=== PATIENT | female | born 1985 | race Caucasian/White ===

== ENCOUNTER → 2018-09-07 | Outpatient (CLI) | payer BC, MEDICAID, OTHER ==
--- NOTE | 2018-09-07 16:41 | Diagnostic Imaging Report ---
INDICATION: patient, survey. TECHNIQUE: Multiple real-time grayscale images were obtained over the gravid uterus. COMPARISON: None FINDINGS: A single live intrauterine fetus is seen measuring at 20 weeks 3 days by composite measurements with sonographic EDC of 01/22/2019. The fetus is in cephalic presentation. Amniotic fluid is qualitatively normal. The gestational sac had a normal shape and appearance. Placenta is fundal with no evidence of previa. heart rate is 139 beats per minute. Cervical length was 6.8 cm. survey demonstrates normal-appearing kidneys, bladder, and stomach. Normal intracranial ventricles are noted. Four-chamber heart view appears normal. The three-vessel cord and cord insertion appeared unremarkable. The spine appeared normal. Maternal ovaries could not be seen but there was no free fluid in the adnexal regions. Biometrical measurements are as follows: Biparietal 4.79 cm, age 20 weeks 4 days. Head circumference 17.39 cm, age 20 weeks 0 days. Abdominal circumference 15.57 cm, age 20 weeks 6 days. Femur length 3.21 cm, age 20 weeks 0 days. Sonographic estimate age: 20 weeks 3 days. Sonographic estimated date of delivery: 01/22/2019. Estimated Weight: 349 gm (+/- 51 gm). LMP percentile: 41%. heart rate: 139 beats per minute. number: 1 of 1. IMPRESSION: Single live intrauterine fetus measuring 20 weeks 3 days in size with no detectable abnormality. Dictated by: Dictated on workstation # [id number]
== END ==
LOC: RAD 14:59
PROVIDERS: ATTEND Obstetrics & Gynecology
DX: Z36.89 Encounter for other specified antenatal screening (principal); Z3A.20 20 weeks gestation of pregnancy
CPT/HCPCS: 76805

== ENCOUNTER → 2018-10-30 | Outpatient (CLI) | payer OTHER | LOC: LAB 07:56 | PROVIDERS: ATTEND Obstetrics & Gynecology | DX: R73.02 Impaired glucose tolerance (oral) (principal) | CPT/HCPCS: 36415; 82951; 82952; 82962 ==

== ENCOUNTER 2018-12-29 06:16 | Outpatient (CLI) | payer OTHER ==
[~2018-12-29] VITALS: Ht 154.9 cm; Wt 74.8 kg
== END 2018-12-29 15:48 | disposition home or self-care (01) ==
LOC: PREOP 06:16
PROVIDERS: ATTEND Obstetrics & Gynecology
DX: Z01.818 Encounter for other preprocedural examination (principal)

== ENCOUNTER 2019-01-02 11:33 | Inpatient (IN) | payer OTHER ==
[~2019-01-02] VITALS: Ht 154.9 cm; Wt 76.2 kg
[2019-01-02] VITALS (9 sets, daily range): BP systolic 96–117; BP diastolic 62–77
--- NOTE | 2019-01-02 11:41 | NUR ---
NIKO VERONICA presented to unit via AMBULATION from HOME, accompanied by S/O, with c/o PREVIOUS C/S. NIKO VERONICA weighed, gowned, voided, and to bed. EFHM and TOCO applied, VS taken. NIKO VERONICA oriented to bed controls, call light, TV, heat, and A/C controls.
[2019-01-02] MEDS ORDERED: LACTATED RINGERS 1,000 ML IV SCH (12:27)
[2019-01-02] MEDS ORDERED: ceFAZolin INJECTION 1,000 MG in WATER (STERILE) FOR INJECTION 10 ML IV ONE (12:30)
[2019-01-02] MEDS ORDERED: FAMOTIDINE 20MG/2ML IV (PEPCID) IV ONE (12:30)
[2019-01-02] MEDS ORDERED: METOCLOPRAMIDE INJ 10 MG/2 ML (REGLAN) IV ONE (12:30)
[2019-01-02] MEDS ORDERED: ceFAZolin INJECTION 1,000 MG in WATER (STERILE) FOR INJECTION 10 ML IV NR (12:30)
[2019-01-02] MEDS ORDERED: CITRIC ACID/SOB CIT (BICITRA) 30 ML UDC PO ONE (12:30)
[2019-01-02] MEDS ORDERED: FAMOTIDINE 20MG/2ML IV (PEPCID) ONE (12:33)
[2019-01-02] MEDS ORDERED: METOCLOPRAMIDE INJ 10 MG/2 ML (REGLAN) ONE (12:33)
[2019-01-02] MEDS ORDERED: CITRIC ACID/SOB CIT (BICITRA) 30 ML UDC ONE (12:33)
[2019-01-02] MEDS ORDERED: ceFAZolin INJECTION 1,000 MG ONE (12:33)
[2019-01-02] MEDS ORDERED: fentaNYL INJECTION 100 MCG/2 ML AMP ONE (12:49)
[2019-01-02] MEDS ORDERED: OXYTOCIN/NORMAL SALINE 1,000 ML IV ONE (12:49)
[2019-01-02] MEDS ORDERED: ROPIVACAINE 5MG/ML 30ML VIAL ONE (12:49)
[2019-01-02] MEDS: LACTATED RINGERS 1,000 ML IV SCH ×2 (13:06→13:47)
[2019-01-02 13:30] LABS: BASOPHILS % (AUTO) 0 % (0-10); EOSINOPHILS % (AUTO) 0 % (0-10); HEMATOCRIT 37 % (35-52); HEMOGLOBIN 12.3 G/DL (11.5-16.0); LYMPHOCYTES % (AUTO) 17 % (12-44); MEAN CORPUSCULAR HEMOGLOBIN 31 PG (25-34); MEAN CORPUSCULAR HGB CONC 33 G/DL (32-36); MEAN CORPUSCULAR VOLUME 94 FL (80-99); MEAN PLATELET VOLUME 10.7 FL (7.4-10.4); MONOCYTES # (AUTO) 0.7 X 10^3 (0.0-1.0); MONOCYTES % (AUTO) 6 % (0-12); NEUTROPHILS # (AUTO) 8.8 X 10^3 (1.8-7.8); NEUTROPHILS % (AUTO) 76 % (42-75); PLATELET COUNT 171 10^3/uL (130-400); RED CELL DISTRIBUTION WIDTH 13.5 % (10.0-14.5); WHITE BLOOD COUNT 11.5 10^3/uL (4.3-11.0)
[2019-01-02 13:37] LABS: BILIRUBIN,URINE NEGATIVE (NEGATIVE); CLARITY,URINE CLEAR; COLOR,URINE YELLOW; GLUCOSE, URINE (UA) NEGATIVE (NEGATIVE); KETONES,URINE 2+ (NEGATIVE); LEUKOCYTE ESTERASE ,URINE NEGATIVE (NEGATIVE); NITRITE,URINE NEGATIVE (NEGATIVE); PH,URINE 6 (5-9); PROTEIN,URINE NEGATIVE (NEGATIVE); UROBILINOGEN,URINE NORMAL (NORMAL)
--- NOTE | 2019-01-02 13:43 | Progress Note-Pre Operative ---
Pre-Operative Progress Note H&P Reviewed The H&P was reviewed, patient examined and no changes noted. Date Seen by Provider: January 02, 2019 Time Seen by Provider: 13:15 Date H&P Reviewed: January 02, 2019 Time H&P Reviewed: 09:00 Pre-Operative Diagnosis: Previous section; history of previous uterine window; recommended RENE FERNANDEZ DO January 02, 2019 13:43
[2019-01-02 13:44] LABS: BACTERIA,URINE MODERATE /HPF
[2019-01-02] MEDS ORDERED: PHENYLEPHRINE 100 MCG/ML 10 ML (ANESTHESIA) SYR ONE (14:06)
--- NOTE | 2019-01-02 14:45 | Cesarean Section Operative ---
Procedure Procedure Note Pre-operative Diagnosis: Jenna Mcneill is a 33 /Para 3/2 , Gestational Age 37 weeks with history of previous cesaeran section x 2, history of uterine window, recommended to delivery at 37 + weeks, received betamethasone, contractions Post-operative Diagnosis: same, large uterine window (4x5 cm) Procedure: Repeat low transverse section Physician: RENE FERNANDEZ Estimated blood loss: [] mL Disposition: stable Findings: Viable male , Apgars 9/9, weight 6#, intact placenta, 3vc, normal appearing uterus, tubes, and ovaries. Indications:Jenna Mcneill is a 33 /Para 3/2 ,Gestational Age 37 weeks with history of previous cesaeran section x 2, history of uterine window, recommended to delivery at 37 + weeks, received betamethasone. She presents today for repeat section and is noted to be having regular contractions Procedure Details: The patient was seen in pre-op and the procedure was discussed with the patient in full, including the risks, benefits, and alternatives. All questions were answered. The patient was taken to the operating room and a time out was performed, verifying patient and procedure. After spinal anesthesia was placed by our anesthesia colleagues, the patient was placed in the dorsal supine with leftward tilt for uterine displacement.~ Her abdomen was then prepped and draped in the typical sterile fashion. A Pfannenstiel skin incision was made using a scalpel and carried down through the underlying fascia. The fascia was incised in the midline and tented up using Miguelangel clamps. On both the inferior and superior fascia side the rectus muscle was dissected off bluntly and sharply using Maria scissors. There were very dense adhesions. The muscles are densely adherent in the midline. The peritoneum was identified and entered bluntly in the midline. This was then stretched laterally using manual strength. After entering the abdominal cavity and confirming lack of intraperitoneal adhesions, a large Thong retractor was placed and the lower uterine segment was visualized. A bladder flap was created with the use of Metzenbaum scissors.~A very large uterine window was noted and the fetus was noted to be moving underneath. A scalpel was utilized to make a low transverse uterine incision, entering directly into the amniotic sac with return of clear fluid. The infant's head was grasped and brought to the level of the incision. Fundal pressure was applied and was delivered without difficulty. Mouth and nares were suctioned with bulb suction. After the umbilical cord was clamped and cut, the was handed off to the pediatric staff. A sample of cord blood was then obtained. The placenta was delivered intact via uterine massage. The uterus was cleared of all clots and debris. The uterine incision was closed using 0 Vicryl in a running locked fashion. A second imbricated layer was placed using 0 Vicryl in a running fashion as well. The bilateral tubes and ovaries appeared normal. The abdominal gutters were cleared of all clots and debris. A final check of the uterine incision showed it to be hemostatic. The peritoneum was closed using 3-0 Vicryl in a running fashion. The fascia was closed with 0 Vicryl in a running fashion. The subcutaneous space was hemostatic, and irrigated. The subcutaneous space was closed with 3-0 Vicryl in several single interrupted stitches. The skin was then closed using 4-0 Monocryl in a running subcuticular fashion. The skin edges were reapproximated together and were hemostatic. A pressure dressing was applied. All sponge, lap and needle counts were correct at the end of the procedure per nursing. Vitals - Labs Labs Laboratory Tests 01/02/19 13:00: White Blood Count 11.5H, Red Blood Count 3.97L, Hemoglobin 12.3, Hematocrit 37, Mean Corpuscular Volume 94, Mean Corpuscular Hemoglobin 31, Mean Corpuscular Hemoglobin Concent 33, Red Cell Distribution Width 13.5, Platelet Count 171, Mean Platelet Volume 10.7H, Neutrophils (%) (Auto) 76H, Lymphocytes (%) (Auto) 17, Monocytes (%) (Auto) 6, Eosinophils (%) (Auto) 0, Basophils (%) (Auto) 0, Neutrophils # (Auto) 8.8H, Lymphocytes # (Auto) 2.0, Monocytes # (Auto) 0.7, Eosinophils # (Auto) 0.0, Basophils # (Auto) 0.0, Urine Color YELLOW, Urine Clarity CLEAR, Urine pH 6, Urine Specific [place] 1.015L, Urine Protein NEGATIVE, Urine Glucose (UA) NEGATIVE, Urine Ketones 2+H, Urine Nitrite NEGATIVE, Urine Bilirubin NEGATIVE, Urine Urobilinogen NORMAL, Urine Leukocyte Esterase NEGATIVE, Urine RBC (Auto) NEGATIVE, Urine RBC NONE, Urine WBC NONE, Urine Squamous Epithelial Cells 10-25H, Urine Crystals NONE, Urine Bacteria MODERATEH, Urine Casts NONE, Urine Mucus NEGATIVE, Urine Culture Indicated NO RENE FERNANDEZ DO January 02, 2019 14:45
[2019-01-02] MEDS ORDERED: OXYTOCIN/NORMAL SALINE 500 ML IV SCH (14:46)
[2019-01-02] MEDS ORDERED: KETOROLAC 30 MG/ML VIAL ONE (14:55)
[2019-01-02] MEDS ORDERED: TETANUS,DIPTH,PERTUSS P/F (BOOSTRIX) 0.5 ML VIAL IM SCH (15:00)
[2019-01-02] MEDS ORDERED: morphine INJ 4 MG/ML 1 ML (VIAL/SYRINGE) IVP PRN (15:00)
[2019-01-02] MEDS ORDERED: MEASLES,MUMPS,RUBELLA 1 EA INJ SC SCH (15:00)
[2019-01-02] MEDS ORDERED: HYDROmorphone 2 MG/ML VIAL (DILAUDID) IV ONE (15:15)
[2019-01-02] MEDS ORDERED: ONDANSETRON 4 MG/2 ML (SDV) Z0FRAN IVP PRN (15:15)
[2019-01-02] MEDS: CATHETER FLUSH 10 ML SYR IV SCH (15:22)
[2019-01-02] MEDS: KETOROLAC 30 MG/ML VIAL IV SCH ×2 (15:22→22:11)
--- NOTE | 2019-01-02 15:50 | NUR ---
FFu/0. scant rubar noted, no clots expressed. raymond-care offered. v-pad and panties in place. able to move LE's upon command. denies no c/o's @ time.
--- NOTE | 2019-01-02 15:58 | NUR ---
pt transferred to room 308 via bed with this RN and @ side. pt stable. call light within reach. familiarized with room surroundings.
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
--- NOTE | 2019-01-02 16:45 | NUR ---
Report from Murtaza Blanton RN
--- NOTE | 2019-01-02 16:50 | NUR ---
Pt returned to room 308 via bed accompanied by staff and family. Pt denies needs or concerns at this time.
--- NOTE | 2019-01-02 18:30 | NUR ---
S.O. to nurses' desk, reports pt ready to get up and try to void. To room to assist pt. Pt assisted to standing at side of bed. Ambulates self to bathroom without incident. +void, 150ml clear yellow urine noted. Perciare performed, fresh pad to perineum. Clean gown applied. Pt ambulates self back to room, desires to stay up at this time instead of returning to bed. Setting up personal breast pump, supplies provided for cleaning. Denies further needs or concerns at this time.
[2019-01-02] MEDS: ACETAMINOPHEN 500 MG TAB (TYLENOL) PO SCH (20:04)
[2019-01-02] MEDS: DOCUSATE SODIUM 100 MG (COLACE) CAP PO SCH (20:04)
[2019-01-03 01:00] VITALS: BP 88/55
[2019-01-03] MEDS: KETOROLAC 30 MG/ML VIAL IV SCH ×2 (03:50→09:35)
[2019-01-03] MEDS: CATHETER FLUSH 10 ML SYR IV SCH (03:50)
[2019-01-03] MEDS: ACETAMINOPHEN 500 MG TAB (TYLENOL) PO SCH ×4 (03:50→21:26)
[2019-01-03 03:55] VITALS: BP 96/65
[2019-01-03] MEDS ORDERED: MILK OF MAGNESIA 400 MG/5 ML 30 ML UDC PO PRN (05:00)
[2019-01-03 06:45] LABS: BASOPHILS % (AUTO) 0 % (0-10); EOSINOPHILS % (AUTO) 0 % (0-10); HEMATOCRIT 33 % (35-52); HEMOGLOBIN 10.7 G/DL (11.5-16.0); LYMPHOCYTES # (AUTO) 1.3 X 10^3 (1.0-4.0); LYMPHOCYTES % (AUTO) 13 % (12-44); MEAN CORPUSCULAR HEMOGLOBIN 31 PG (25-34); MEAN CORPUSCULAR HGB CONC 33 G/DL (32-36); MEAN CORPUSCULAR VOLUME 94 FL (80-99); MEAN PLATELET VOLUME 10.4 FL (7.4-10.4); MONOCYTES # (AUTO) 0.8 X 10^3 (0.0-1.0); MONOCYTES % (AUTO) 8 % (0-12); NEUTROPHILS # (AUTO) 8.4 X 10^3 (1.8-7.8); NEUTROPHILS % (AUTO) 79 % (42-75); PLATELET COUNT 166 10^3/uL (130-400); RED CELL DISTRIBUTION WIDTH 13.9 % (10.0-14.5); WHITE BLOOD COUNT 10.5 10^3/uL (4.3-11.0)
[2019-01-03 08:00] VITALS: BP 94/51
[2019-01-03] MEDS: DOCUSATE SODIUM 100 MG (COLACE) CAP PO SCH ×2 (09:36→21:26)
--- NOTE | 2019-01-03 11:22 | Anesthesia-Regional Post-Op ---
Regional Patient Condition Mental Status: Alert, Oriented x3 Circulation: Same as Pre-Op Headache: Absent Sensation: Full Recovery Motor Block: Absent Post Op Complications Complications None Follow Up Care/Instructions Patient Instructions None needed. Anesthesia/Patient Condition Patient is doing well, no complaints, stable vital signs, no apparent adverse anesthesia problems. No complications reported per nursing. LURDES MCINTYRE CRNA January 03, 2019 11:21
[2019-01-03 12:00] VITALS: BP 94/51
[2019-01-03] MEDS: IBUPROFEN 600 MG (MOTRIN) TAB PO SCH ×2 (15:29→21:26)
[2019-01-03 16:00] VITALS: BP 99/57
[2019-01-03 21:28] VITALS: BP 110/70
[2019-01-04] VITALS: BP 104/62
[2019-01-04] MEDS: ACETAMINOPHEN 500 MG TAB (TYLENOL) PO SCH ×2 (03:36→09:41)
[2019-01-04] MEDS: IBUPROFEN 600 MG (MOTRIN) TAB PO SCH ×2 (03:37→09:36)
--- NOTE | 2019-01-04 08:10 | Postpartum Progress Note ---
Post Op Post-operative Day #2 s/p RLTCS Subjective: Patient is without complaints. Ambulating, voiding after baker removed. Tolerating a regular diet without nausea or vomiting. Normal lochia. Pain is well controlled with oral pain medications. Passing flatus. [] feeding. [] Objective: 01/03/19 01/04/19 21:28 00:00 Temp 98.5 98.2 Pulse 80 74 Resp 16 16 B/P (MAP) 110/70 (83) 104/62 (76) Pulse Ox 98 96 O2 Delivery Room Air Room Air Laboratory Tests Test 01/02/19 13:00 01/03/19 06:35 Range/Units White Blood Count 11.5 H 10.5 4.3-11.0 10^3/uL Red Blood Count 3.97 L 3.48 L 4.35-5.85 10^6/uL Hemoglobin 12.3 10.7 L 11.5-16.0 G/DL Hematocrit 37 33 L 35-52 % Mean Corpuscular Volume 94 94 80-99 FL Mean Corpuscular Hemoglobin 31 31 25-34 PG Mean Corpuscular Hemoglobin Concent 33 33 32-36 G/DL Red Cell Distribution Width 13.5 13.9 10.0-14.5 % Platelet Count 171 166 130-400 10^3/uL Mean Platelet Volume 10.7 H 10.4 7.4-10.4 FL Neutrophils (%) (Auto) 76 H 79 H 42-75 % Lymphocytes (%) (Auto) 17 13 12-44 % Monocytes (%) (Auto) 6 8 0-12 % Eosinophils (%) (Auto) 0 0 0-10 % Basophils (%) (Auto) 0 0 0-10 % Neutrophils # (Auto) 8.8 H 8.4 H 1.8-7.8 X 10^3 Lymphocytes # (Auto) 2.0 1.3 1.0-4.0 X 10^3 Monocytes # (Auto) 0.7 0.8 0.0-1.0 X 10^3 Eosinophils # (Auto) 0.0 0.0 0.0-0.3 10^3/uL Basophils # (Auto) 0.0 0.0 0.0-0.1 10^3/uL Urine Color YELLOW Urine Clarity CLEAR Urine pH 6 5-9 Urine Specific [place] 1.015 L 1.016-1.022 Urine Protein NEGATIVE NEGATIVE Urine Glucose (UA) NEGATIVE NEGATIVE Urine Ketones 2+ H NEGATIVE Urine Nitrite NEGATIVE NEGATIVE Urine Bilirubin NEGATIVE NEGATIVE Urine Urobilinogen NORMAL NORMAL MG/DL Urine Leukocyte Esterase NEGATIVE NEGATIVE Urine RBC (Auto) NEGATIVE NEGATIVE Urine RBC NONE /HPF Urine WBC NONE /HPF Urine Squamous Epithelial Cells 10-25 H /HPF Urine Crystals NONE /LPF Urine Bacteria MODERATE H /HPF Urine Casts NONE /LPF Urine Mucus NEGATIVE /LPF Urine Culture Indicated NO Physical Exam: General - Alert and oriented, no apparent distress Abdomen - Soft, appropriately tender to palpation, non-distended, fundus firm at umbilicus Incision - clean, dry and intact; no erythema or induration, no drainage Extremities - no edema, negative Isabela's bilaterally Assessment: 1. post-operative day # 2, status post RLTCS Recovering well, hemodynamically stable Plan: Routine post-operative care. Encourage breast feeding. Encourage ambulation. VTE prophylaxis: SCDs. Ferrous sulfate supplementation. Plan for discharge today or tomorrow depending on baby Vitals - Labs Vital Signs - I&O Vital Signs Date Time Temp Pulse Resp B/P (MAP) Pulse Ox O2 Delivery O2 Flow Rate FiO2 01/04/19 00:00 98.2 74 16 104/62 (76) 96 Room Air 01/03/19 21:28 98.5 80 16 110/70 (83) 98 Room Air 01/03/19 16:00 97.6 74 16 99/57 (71) 97 Room Air 01/03/19 15:29 96.8 01/03/19 12:00 96.8 63 18 94/51 (65) 99 Room Air 01/03/19 09:35 96.8 I & O 01/04/19 06:59 Intake Total 600 ml Balance 600 ml Labs Microbiology 01/02/19 MRSA Screen - Final, Complete MRSA not isolated RENE FERNANDEZ DO January 04, 2019 08:10
[2019-01-04] MEDS ORDERED: ACET-77 PO (08:12)
[2019-01-04] MEDS ORDERED: IBUP-844 PO (08:12)
[2019-01-04] MEDS ORDERED: OXC5T PO (08:12)
[2019-01-04] MEDS ORDERED: DOCU100C37 PO (08:12)
--- NOTE | 2019-01-04 08:14 | Discharge Inst-Women's Service ---
Discharge Inst-Women's Serv Depart Medication/Instructions New, Converted or Re-Newed RX: Other (transmitted and printed) Final Diagnosis Previous section contractions Large uterine window Consults/Follow Up Additional Follow Up: Yes (1 - 2 weeks for incision check and 6 weeks for post exam ) Activity Activity: Activity as Tolerated Driving Instructions: No Driving for 1 Week NO SMOKING: NO SMOKING Nothing Inside Vagina: No Douching, No [employer], No Tampons Other Activity no lifting over 25 lbs nothing in the vagina until cleared Diet Discharge Diet: No Restrictions Symptoms to Report to DrVance: Swelling Increased, Bleeding Excessive, Pain Increased, Fever Over 101 Degrees F, Vaginal Bleeding Increase, Cramps in Feet or Legs, Vaginal Discharge Foul For Any Problems or Questions: Contact Your Physician Skin/Wound Care Infection Signs and Symptoms: Increased Redness, Foul Odor of Wound, Increased Drainage, Skin Itchy or Has a Rash, Increased Swelling, Temperature Above 101 F Operative Area Clean and Dry: Keep Incision Clean/Dry Stitches/[place]/Dermabond: Dermabond Bathing Instructions: RENE Matt DO January 04, 2019 08:14
[2019-01-04] MEDS: DOCUSATE SODIUM 100 MG (COLACE) CAP PO SCH (09:36)
[2019-01-04 09:38] VITALS: BP 93/65
--- NOTE | 2019-01-04 13:15 | NUR ---
Dr Juarez here to see pt. Discharge orders rec'd.
--- NOTE | 2019-01-04 14:24 | NUR ---
DISCHARGE INSTRUCTIONS EXPLAINED TO PT WITH COPY PROVIDED TO PT ALONG WITH NARCOTIC SCRIPT. PT NOTIFIED OF OTHER SCRIPTS TRANSMITTED TO PHARMACY. PT NOTIFIED OF FOLLOW UP APPTS. VERBALIZES UNDERSTANDING OF INSTRUCTION AND CALLS TO VERIFY. DENIES ANY QUESTIONS OR CONCERNS AT THIS TIME.
--- NOTE | 2019-01-04 14:30 | NUR ---
PT AMBULATES OFF UNIT ACCOMPANIED BY RN, S.O. TO PRIVATE VEHICLE. ALL PERSONAL BELONGINGS WITH PT. NO S/S OF DISTRESS NOTED.
== END 2019-01-04 14:30 | disposition home or self-care (01) | DRG 786 ==
LOC: LDRP 11:33
PROVIDERS: ADMIT Obstetrics & Gynecology; ATTEND Obstetrics & Gynecology
PROC: 10D00Z1 Extraction of Products of Conception, Low, Open Approach (ICD-10-PCS; principal; 2019-01-02 13:47)
DX: O34.211 Maternal care for low transverse scar from previous cesarean delivery (principal); O60.23X0 Term delivery with preterm labor, third trimester, not applicable or unspecified; O34.593 Maternal care for other abnormalities of gravid uterus, third trimester; Z87.891 Personal history of nicotine dependence; Z37.0 Single live birth; Z3A.37 37 weeks gestation of pregnancy
CPT/HCPCS: 36415; 81000; 85025; 86850; 86900; 86901; 87081; 94664